=== PATIENT | female | born 1995 | race Caucasian/White ===

== ENCOUNTER → 2016-12-16 | Outpatient (CLI) | payer BC ==
--- NOTE | 2016-12-16 18:32 | REP ---
Clinical: Pelvic pain . Technique: Transabdominal pelvic ultrasound followed by transvaginal examination for better evaluation of the endometrium and adnexa with color Doppler evaluation of the ovaries. Findings: Bladder is unremarkable and measures 11.6 x 10.2 x 8.2 cm . Normal anteverted uterus measures 7.9 x 3.0 x 5.2 cm . The endometrial complex measures 4.8 mm thickness. No discrete uterine or endometrial abnormalities are appreciated. IUD identified in satisfactory midline position. Bilateral ovaries are normal in appearance and vascularity without evidence for torsion. Right ovary measures 3.1 x 2.2 x 1.6 cm ; R I = 0.50 . Left ovary measures 3.0 x 1.8 x 2.3 cm ; R I = 0.43 . No pelvic fluid or adnexal mass lesion . Impression: 1. Normal pelvic ultrasound. 2. IUD in satisfactory position.
== END ==
LOC: M WHC 10:56
PROVIDERS: ATTEND Nurse Practitioner Women's Health
DX: R10.2 Pelvic and perineal pain (principal); Z30.431 Encounter for routine checking of intrauterine contraceptive device

== ENCOUNTER → 2017-11-25 | Outpatient (REF) | payer BC | LOC: M SFHCWAGY 15:56 | DX: Z12.4 Encounter for screening for malignant neoplasm of cervix (principal) | CPT/HCPCS: G0123 ==

== ENCOUNTER → 2018-03-21 | Outpatient (REF) | payer BC ==
[2018-03-21 20:51] LABS: CHLAMYDIA DNA AMPLIFICATION NEGATIVE (NEGATIVE); GC DNA AMPLIFICATION NEGATIVE (NEGATIVE)
== END ==
LOC: M SFHCWAGY 16:08
PROVIDERS: ATTEND Nurse Practitioner Women's Health
DX: Z12.4 Encounter for screening for malignant neoplasm of cervix (principal); Z11.3 Encounter for screening for infections with a predominantly sexual mode of transmission
CPT/HCPCS: 87491; 87591; G0123